=== PATIENT | male | born 1985 | race Caucasian/White ===

== ENCOUNTER 2018-02-26 11:40 | Emergency (ER) | payer BC ==
[~2018-02-26] VITALS: Ht 177.8 cm; Wt 85.6 kg
[2018-02-26] MEDS ORDERED: CIPRO500 MG PO (14:20)
[2018-02-26 14:47] VITALS: BP 132/80
== END 2018-02-26 14:48 | disposition home or self-care (01) ==
LOC: EME 11:40
DX: K61.1 Rectal abscess (principal)
CPT/HCPCS: 99281; 99283